=== PATIENT | female | born 1960 | race Caucasian/White ===

== ENCOUNTER → 2017-05-16 | Outpatient (CLI) | payer OTHER ==
--- NOTE | 2017-05-16 15:28 | DIAGNOSTIC IMAGING REPORT ---
MRCP HISTORY: K83.8 Common bile duct dilation R10.11 generalized Abdominal pain, [id number] TECHNIQUE: MRCP the abdomen was performed according to standard departmental protocol without the use of intravenous contrast. COMPARISON STUDY: Abdominal ultrasound 07/24/2007. FINDINGS: Small hiatus hernia. The lung bases are clear. The liver, spleen, adrenal glands, and kidneys are unremarkable. No retroperitoneal lymphadenopathy. A custom straightening of normal signal intensity. Gallbladder is decompressed but appears unremarkable. No intrahepatic bile duct dilatation. Mildly distended common bile duct and common hepatic duct measuring up to 7.6 mm. This is slightly increased in size compared to the 2006 abdominal ultrasound. No filling defects seen within the common bile duct or main pancreatic duct. The distal main pancreatic duct is also slightly prominent at the pancreatic head measuring up to 4 mm. There is a T2 hyperintense lesion within the junction of the body/tail of the pancreas best seen on axial image 12 of 27. This does not clearly connect to the main pancreatic duct. IMPRESSION: 1. Mildly dilated common bile duct and distal main pancreatic duct. However, no filling defects identified. The common bile duct dilatation is slightly progressed compared to the 2006 examination. ERCP can be used for further evaluation if clinically warranted. 2. Normal gallbladder. 3. An 8 mm cystic lesion within the distal body/tail the pancreas. This favors a cystic neoplasm such as a serous cystadenoma. One year follow-up is recommended to ensure stability. Electronically signed by: Alexander Barrett M.D. 05/16/2017 3:27 PM Dictated Date/Time: 05/16/2017 3:16 PM
== END | disposition home or self-care (01) ==
LOC: C.MRI 12:42
PROVIDERS: ATTEND Physician Assistant
DX: R10.11 Right upper quadrant pain (principal); K83.8 Other specified diseases of biliary tract; R93.2 Abnormal findings on diagnostic imaging of liver and biliary tract

== ENCOUNTER → 2018-01-02 | Day surgery (SDC) | payer OTHER ==
[2017-12-25 08:35] VITALS: BMI 35.0
[~2018-01-02] VITALS: Ht 154.9 cm; Wt 84.1 kg
[~2018-01-02] MED LIST: ASPCH81X PO; BUPR-79 PO; CHOL1000 PO; FERR1TAB13 PO; HYDR12.56 PO; INSDGI SC; LEVO125T5 PO; LIDOCAINE HCL 2% 2 ML VIAL (20MG/ML) ONE; LISI-461 PO; LORA-741 PO; METF500T5 PO; MIRT30TA2 PO; MULT-1092 PO; PANT1TAB3 PO; PROPOFOL IV EMULSION 10 MG/ML 20 ML VIAL IV ONE; SIMV40TA2 PO; SODIUM CHLORIDE 0.9% 500ML 500 ML IV ONE; TANZEUM SC; VNTHFA/IN INH; VORT1TAB PO
[2018-01-02 10:12] VITALS: Ht 154.9 cm; Wt 84.1 kg
--- NOTE | 2018-01-02 10:28 | Endo History and Physical ---
History & Physical Date of Service: Jan 02, 2018. Chief Complaint: Screening Referring Physician: Mari History of Present Illness 57 yo CF who presents for screening colonoscopy. Past Surgical History Hx Cardiac Surgery: No Hx Internal Defibrillator: No Hx Pacemaker: No Hx Abdominal Surgery: Yes (HYSTERECTOMY) Hx of Implantable Prosthesis: No Hx Post-Op Nausea and Vomiting: No Hx Cancer Surgery: No Hx Thoracic Surgery: No Hx Orthopedic: No Hx Urinary Tract Surgery: No Family History Esophogeal [place] Social History Smoking Status: Current Some Day Smoker Hx Substance Use: No Hx Alcohol Use: Yes (OCCASIONALLY) Allergies Coded Allergies: No Known Allergies (Verified , 12/25/17) Current Medications Reported Home Medications Medications Dose Route/Sig Max Daily Dose Days Date Category Ventolin Hfa (Albuterol) 200 Puffs/62727 Mcg Aers 2-4 Puffs INH Q6H PRN 12/25/17 Reported Glucophage Er (Metformin HCl) 500 Mg Tab 2 Tab PO BID 12/25/17 Reported Zocor (Simvastatin) 40 Mg Tab 40 Mg PO QAM 12/25/17 Reported Vitamin D3 (Cholecalciferol) 1,000 Unit Tab 1 Tab PO QAM 12/25/17 Reported Trintellix (Vortioxetine HBr) 5 Mg Tab 1 Tab PO QAM 12/25/17 Reported [Tanzeum] Unknown Dose SC WK ON SUN. 12/25/17 Reported Remeron Soltab (Mirtazapine) 30 Mg Soltab 30 Mg PO HS 12/25/17 Reported Protonix (Pantoprazole) 40 Mg Tab 40 Mg PO QAM 12/25/17 Reported Ativan (Lorazepam) 0.5 Mg Tab 0.5 Mg PO HS PRN 12/25/17 Reported Zestril (Lisinopril) 10 Mg Tab 10 Mg PO QAM 12/25/17 Reported Levothyroxine Sodium 125 Mcg Tab 1 Tab PO QAM 12/25/17 Reported Lantus (Insulin Glargine) 100 Unit/Ml Inj 25 Units SC HS 12/25/17 Reported Hctz (Hydrochlorothiazide) 12.5 Mg Cap 12.5 Mg PO QAM 12/25/17 Reported Kp Ferrous Sulfate (Ferrous Sulfate) 325 Mg Tab 1 Tab PO QAM 12/25/17 Reported Centrum Silver 50+Women (Multiple Vitamins W/ Minerals) 1 Tab Tab 1 Tab PO QAM 12/25/17 Reported Wellbutrin Sr (Bupropion HCl) 150 Mg Ertab 150 Mg PO QAM 12/25/17 Reported Aspirin Chewable (Aspirin) 81 Mg Chew 81 Mg PO QAM 12/25/17 Reported Vital Signs Weight (Kilograms): 84.09 Height (Feet): 5 Height (Inches): 1 Date Time Temp Pulse Resp B/P (MAP) Pulse Ox O2 Delivery O2 Flow Rate FiO2 01/02/18 10:10 36.7 84 18 157/91 (113) 97 Room Air Physical Exam General Appearance: WD/WN, no apparent distress Respiratory/Chest: Auscultation: breath sounds normal Cardiovascular: Heart Auscultation: RRR Abdomen: Bowel Sounds: normal Inspection & Palpation: soft, non-distended, no tenderness, guarding & rebound Assessment and Plan Assessment: 57 yo CF who presents for screening colonoscopy. Plan: Proceed with colonoscopy.
--- NOTE | 2018-01-02 10:48 | Discharge Instructions ---
Endoscopy Patient Instructions Date / Procedure(s) Performed Jan 02, 2018. Colonoscopy Allergy Information Coded Allergies: No Known Allergies (Verified , 12/25/17) Discharge Date / Findings Jan 02, 2018. Poor bowel prep Internal hemorrhoids Medication Instructions OK to resume all medications today as prescribed Reported Home Medications Medications Dose Route/Sig Max Daily Dose Days Date Category Ventolin Hfa (Albuterol) 200 Puffs/16009 Mcg Aers 2-4 Puffs INH Q6H PRN 12/25/17 Reported Glucophage Er (Metformin HCl) 500 Mg Tab 2 Tab PO BID 12/25/17 Reported Zocor (Simvastatin) 40 Mg Tab 40 Mg PO QAM 12/25/17 Reported Vitamin D3 (Cholecalciferol) 1,000 Unit Tab 1 Tab PO QAM 12/25/17 Reported Trintellix (Vortioxetine HBr) 5 Mg Tab 1 Tab PO QAM 12/25/17 Reported [Tanzeum] Unknown Dose SC WK ON SUN. 12/25/17 Reported Remeron Soltab (Mirtazapine) 30 Mg Soltab 30 Mg PO HS 12/25/17 Reported Protonix (Pantoprazole) 40 Mg Tab 40 Mg PO QAM 12/25/17 Reported Ativan (Lorazepam) 0.5 Mg Tab 0.5 Mg PO HS PRN 12/25/17 Reported Zestril (Lisinopril) 10 Mg Tab 10 Mg PO QAM 12/25/17 Reported Levothyroxine Sodium 125 Mcg Tab 1 Tab PO QAM 12/25/17 Reported Lantus (Insulin Glargine) 100 Unit/Ml Inj 25 Units SC HS 12/25/17 Reported Hctz (Hydrochlorothiazide) 12.5 Mg Cap 12.5 Mg PO QAM 12/25/17 Reported Kp Ferrous Sulfate (Ferrous Sulfate) 325 Mg Tab 1 Tab PO QAM 12/25/17 Reported Centrum Silver 50+Women (Multiple Vitamins W/ Minerals) 1 Tab Tab 1 Tab PO QAM 12/25/17 Reported Wellbutrin Sr (Bupropion HCl) 150 Mg Ertab 150 Mg PO QAM 12/25/17 Reported Aspirin Chewable (Aspirin) 81 Mg Chew 81 Mg PO QAM 12/25/17 Reported Provider Instructions Activity Restrictions - No exercising or heavy lifting for 24 hours. - Do not drink alcohol the day of the procedure. - Do not drive a car or operate machinery until the day after the procedure. - Do not make any important decisions or sign important papers in 24 hours after the procedure. Following Day: - Return to full activity which may include returning to work/school. Diet Start your diet with liquids and light foods (jello, soup, juice, toast). Then eat your usual diet if not nauseated. Treatment For Common After Affects For mild abdominal pain, bloating, or excessive gas: - Rest - Eat lightly - Lie on right side Repeat colonoscopy in 3 months Follow-Up Information Follow-up with DR JAMIE TUBBS as scheduled Anesthesia Information What You Should Know You have had a procedure that required some medicine to reduce anxiety and discomfort. This treatment is called moderate sedation. After receiving the treatment, you may be sleepy, but you will be able to breathe on your own. The effects of the treatment may last for several hours. Follow these instructions along with Activity/Diet recommendations noted above: * Do NOT do anything where dizziness or clumsiness would be dangerous. * Rest quietly at home today, then you can be up and about tomorrow. * Have a responsible person stay with you the rest of today. * You may have had an I.V. today. If so, you may take the dressing off later today. Recommendations Call your doctor if: * Trouble breathing * Continuous vomiting for more than 24 hours * Temperature above 101 degrees * Severe abdominal pain or bloating * Pain not relieved by pain medicine ordered * There is increased drainage or redness from any incision * A large amount of rectal bleeding greater than 2-3 tablespoons. (If you had a polyp/s removed or have hemorrhoids, a small amount of blood - from the rectum is to be expected.) * You have any unanswered questions or concerns. IN THE EVENT OF A SERIOUS EMERGENCY, GO TO THE NEAREST EMERGENCY ROOM Your discharge instructions were prepared by provider Carlos Forde. Patient Instructions Signature Page Rakel Huynh Patient (or Guardian) Signature/Date: I have read and understand the instructions given to me by my caregivers. Caregiver/RN/Doctor Signature/Date: The above-named patient and/or guardian has received patient instructions on this date. + Original Patient Signature Page (only) stays with chart. Please make copy for patient.
[2018-01-02 11:18] VITALS: BP 160/88; PULSE 85; O2SAT 95
--- NOTE | 2018-01-02 13:06 | Anesthesiology Progress Note ---
Anesthesia Post Op Note Date & Time Jan 02, 2018 at 13:06 Vital Signs Pain Intensity: 0 Vital Signs Past 12 Hours Date Time Temp Pulse Resp B/P (MAP) Pulse Ox O2 Delivery O2 Flow Rate FiO2 01/02/18 11:18 85 20 160/88 (112) 95 Room Air 01/02/18 11:08 84 18 159/87 (111) 97 Room Air 01/02/18 10:48 89 14 106/78 (87) 97 Room Air 01/02/18 10:10 36.7 84 18 157/91 (113) 97 Room Air Notes Mental Status: alert / awake / arousable, participated in evaluation Pt Amnestic to Procedure: Yes Nausea / Vomiting: adequately controlled Pain: adequately controlled Airway Patency, RR, SpO2: stable & adequate BP & HR: stable & adequate Hydration State: stable & adequate Anesthetic Complications: no major complications apparent
--- NOTE | 2018-01-03 11:34 | GI REPORT ---
Patient Name: Rakel Huynh Procedure Date: 01/02/2018 10:20 AM Date of : 1960 Admit Type: Outpatient Age: 57 Gender: Female Attending MD: Carlos Forde DO Procedure: Colonoscopy Providers: Carlos Forde DO Referring MD: Alexandrea Guerra Indications: Screening for colorectal malignant neoplasm Medicines: Monitored Anesthesia Care Complications: No immediate complications. Estimated Blood Loss: Estimated blood loss: none. Procedure: Pre-Anesthesia Assessment: - Prior to the procedure, a History and Physical was performed, and patient medications and allergies were reviewed. The patient's tolerance of previous anesthesia was also reviewed. The risks and benefits of the procedure and the sedation options and risks were discussed with the patient. All questions were answered, and informed consent was obtained. Prior Anticoagulants: The patient has taken aspirin, last dose was 1 day prior to procedure. ASA Grade Assessment: III - A patient with severe systemic disease. After reviewing the risks and benefits, the patient was deemed in satisfactory condition to undergo the procedure. After I obtained informed consent, the scope was passed under direct vision. Throughout the procedure, the patient's blood pressure, pulse, and oxygen saturations were monitored continuously. The scope was introduced through the anus with the intention of advancing to the ileum. The scope was advanced to the splenic flexure before the procedure was aborted. Medications were given. The colonoscopy was performed without difficulty. The patient tolerated the procedure well. The quality of the bowel preparation was poor. The rectum was photographed. Findings: The perianal and digital rectal examinations were normal. Extensive amounts of stool was found in the rectum, in the sigmoid colon, in the descending colon and at the splenic flexure, precluding visualization. Non-bleeding internal hemorrhoids were found during retroflexion. The hemorrhoids were small. Impression: - Preparation of the colon was poor. - Stool in the rectum, in the sigmoid colon, in the descending colon and at the splenic flexure. - Non-bleeding internal hemorrhoids. - No specimens collected. Recommendation: - Resume previous diet. - Continue present medications. - Repeat colonoscopy in 3 months because the bowel preparation was poor. - Return to primary care physician as previously scheduled. Carlos Forde DO 01/02/2018 4:42:36 PM This report has been signed electronically. Note Initiated On: 01/02/2018 10:20 AM Number of Addenda: 0 I attest to the content of the Intraoperative Record and orders documented therein, exceptions below {[id number]}
== END | disposition home or self-care (01) ==
LOC: C.GI 08:48
PROVIDERS: ATTEND Internal Medicine
DX: Z12.11 Encounter for screening for malignant neoplasm of colon (principal); Z80.0 Family history of malignant neoplasm of digestive organs; Z90.710 Acquired absence of both cervix and uterus; Z90.89 Acquired absence of other organs; F17.200 Nicotine dependence, unspecified, uncomplicated; Z79.899 Other long term (current) drug therapy; Z79.4 Long term (current) use of insulin; Z79.82 Long term (current) use of aspirin

== ENCOUNTER → 2018-04-10 | Day surgery (SDC) | payer OTHER ==
[2018-04-05 11:11] VITALS: Ht 154.9 cm; Wt 75.0 kg
[~2018-04-10] VITALS: Ht 154.9 cm; Wt 75.0 kg
[~2018-04-10] MED LIST changes: -HYDR12.56 PO; -PROPOFOL IV EMULSION 10 MG/ML 20 ML VIAL IV ONE; +PROPOFOL IV EMULSION 10 MG/ML 20 ML VIAL ONE
--- NOTE | 2018-04-10 08:28 | Endo History and Physical ---
History & Physical Date of Service: Apr 10, 2018. Chief Complaint: Screening Referring Physician: Alexandrea Guerra History of Present Illness 58 yo CF who presents for screening colonoscopy. Past Surgical History Hx Cardiac Surgery: No Hx Internal Defibrillator: No Hx Pacemaker: No Hx Abdominal Surgery: Yes (HYSTERECTOMY) Hx of Implantable Prosthesis: No Hx Post-Op Nausea and Vomiting: No Hx Cancer Surgery: No Hx Thoracic Surgery: No Hx Orthopedic: No Hx Urinary Tract Surgery: No Family History Esophogeal [place] Social History Smoking Status: Current Some Day Smoker Hx Substance Use: No Hx Alcohol Use: Yes (OCCASIONALLY) Allergies Coded Allergies: No Known Allergies (Verified , 04/05/18) Current Medications Reported Home Medications Medications Dose Route/Sig Max Daily Dose Days Date Category Ventolin Hfa (Albuterol) 200 Puffs/76842 Mcg Aers 2-4 Puffs INH Q6H PRN 12/25/17 Reported Glucophage Er (Metformin HCl) 500 Mg Tab 2 Tab PO BID 12/25/17 Reported Zocor (Simvastatin) 40 Mg Tab 40 Mg PO QAM 12/25/17 Reported Vitamin D3 (Cholecalciferol) 1,000 Unit Tab 1 Tab PO QAM 12/25/17 Reported Trintellix (Vortioxetine HBr) 5 Mg Tab 1 Tab PO QAM 12/25/17 Reported [Tanzeum] Unknown Dose SC WK ON SUN. 12/25/17 Reported Remeron Soltab (Mirtazapine) 30 Mg Soltab 30 Mg PO HS 12/25/17 Reported Protonix (Pantoprazole) 40 Mg Tab 40 Mg PO QAM 12/25/17 Reported Ativan (Lorazepam) 0.5 Mg Tab 0.5 Mg PO HS PRN 12/25/17 Reported Zestril (Lisinopril) 10 Mg Tab 10 Mg PO QAM 12/25/17 Reported Levothyroxine Sodium 125 Mcg Tab 1 Tab PO QAM 12/25/17 Reported Lantus (Insulin Glargine) 100 Unit/Ml Inj 25 Units SC HS 12/25/17 Reported Kp Ferrous Sulfate (Ferrous Sulfate) 325 Mg Tab 1 Tab PO QAM 12/25/17 Reported Centrum Silver 50+Women (Multiple Vitamins W/ Minerals) 1 Tab Tab 1 Tab PO QAM 12/25/17 Reported Wellbutrin Sr (Bupropion HCl) 150 Mg Ertab 150 Mg PO QAM 12/25/17 Reported Aspirin Chewable (Aspirin) 81 Mg Chew 81 Mg PO QAM 12/25/17 Reported Vital Signs Weight (Kilograms): 75 Height (Feet): 5 Height (Inches): 1 Date Time Temp Pulse Resp B/P (MAP) Pulse Ox O2 Delivery O2 Flow Rate FiO2 04/10/18 08:17 36.6 94 18 149/86 (107) 97 Room Air Physical Exam General Appearance: WD/WN, no apparent distress Respiratory/Chest: Auscultation: breath sounds normal Cardiovascular: Heart Auscultation: RRR Abdomen: Bowel Sounds: normal Inspection & Palpation: soft, non-distended, no tenderness, guarding & rebound Assessment and Plan Assessment: 58 yo CF who presents for screening colonoscopy. Plan: Proceed with colonoscopy.
--- NOTE | 2018-04-10 09:39 | Discharge Instructions ---
Endoscopy Patient Instructions Date / Procedure(s) Performed Apr 10, 2018. Colonoscopy Allergy Information Coded Allergies: No Known Allergies (Verified , 04/05/18) Discharge Date / Findings Apr 10, 2018. Internal hemorrhoids Medication Instructions Stopped Medication(s): Patient stated she "didn't take any of it". OK to resume all medications today as prescribed Reported Home Medications Medications Dose Route/Sig Max Daily Dose Days Date Category Ventolin Hfa (Albuterol) 200 Puffs/08011 Mcg Aers 2-4 Puffs INH Q6H PRN 12/25/17 Reported Glucophage Er (Metformin HCl) 500 Mg Tab 2 Tab PO BID 12/25/17 Reported Zocor (Simvastatin) 40 Mg Tab 40 Mg PO QAM 12/25/17 Reported Vitamin D3 (Cholecalciferol) 1,000 Unit Tab 1 Tab PO QAM 12/25/17 Reported Trintellix (Vortioxetine HBr) 5 Mg Tab 1 Tab PO QAM 12/25/17 Reported [Tanzeum] Unknown Dose SC WK ON SUN. 12/25/17 Reported Remeron Soltab (Mirtazapine) 30 Mg Soltab 30 Mg PO HS 12/25/17 Reported Protonix (Pantoprazole) 40 Mg Tab 40 Mg PO QAM 12/25/17 Reported Ativan (Lorazepam) 0.5 Mg Tab 0.5 Mg PO HS PRN 12/25/17 Reported Zestril (Lisinopril) 10 Mg Tab 10 Mg PO QAM 12/25/17 Reported Levothyroxine Sodium 125 Mcg Tab 1 Tab PO QAM 12/25/17 Reported Lantus (Insulin Glargine) 100 Unit/Ml Inj 25 Units SC HS 12/25/17 Reported Kp Ferrous Sulfate (Ferrous Sulfate) 325 Mg Tab 1 Tab PO QAM 12/25/17 Reported Centrum Silver 50+Women (Multiple Vitamins W/ Minerals) 1 Tab Tab 1 Tab PO QAM 12/25/17 Reported Wellbutrin Sr (Bupropion HCl) 150 Mg Ertab 150 Mg PO QAM 12/25/17 Reported Aspirin Chewable (Aspirin) 81 Mg Chew 81 Mg PO QAM 12/25/17 Reported Provider Instructions Activity Restrictions - No exercising or heavy lifting for 24 hours. - Do not drink alcohol the day of the procedure. - Do not drive a car or operate machinery until the day after the procedure. - Do not make any important decisions or sign important papers in 24 hours after the procedure. Following Day: - Return to full activity which may include returning to work/school. Diet Start your diet with liquids and light foods (jello, soup, juice, toast). Then eat your usual diet if not nauseated. Treatment For Common After Affects For mild abdominal pain, bloating, or excessive gas: - Rest - Eat lightly - Lie on right side Follow-Up Information Follow-up with Dr. Guerra as scheduled Anesthesia Information What You Should Know You have had a procedure that required some medicine to reduce anxiety and discomfort. This treatment is called moderate sedation. After receiving the treatment, you may be sleepy, but you will be able to breathe on your own. The effects of the treatment may last for several hours. Follow these instructions along with Activity/Diet recommendations noted above: * Do NOT do anything where dizziness or clumsiness would be dangerous. * Rest quietly at home today, then you can be up and about tomorrow. * Have a responsible person stay with you the rest of today. * You may have had an I.V. today. If so, you may take the dressing off later today. Recommendations Call your doctor if: * Trouble breathing * Continuous vomiting for more than 24 hours * Temperature above 101 degrees * Severe abdominal pain or bloating * Pain not relieved by pain medicine ordered * There is increased drainage or redness from any incision * A large amount of rectal bleeding greater than 2-3 tablespoons. (If you had a polyp/s removed or have hemorrhoids, a small amount of blood - from the rectum is to be expected.) * You have any unanswered questions or concerns. IN THE EVENT OF A SERIOUS EMERGENCY, GO TO THE NEAREST EMERGENCY ROOM Your discharge instructions were prepared by provider Carlos Forde. Patient Instructions Signature Page Rakel Huynh Patient (or Guardian) Signature/Date: I have read and understand the instructions given to me by my caregivers. Caregiver/RN/Doctor Signature/Date: The above-named patient and/or guardian has received patient instructions on this date. + Original Patient Signature Page (only) stays with chart. Please make copy for patient.
--- NOTE | 2018-04-10 09:45 | GI REPORT ---
Patient Name: Rakel Huynh Procedure Date: 04/10/2018 9:02 AM Date of : 1960 Admit Type: Outpatient Age: 58 Gender: Female Attending MD: Carlos Forde DO Procedure: Colonoscopy Providers: Carlos Forde DO Referring MD: Alexandrea Guerra Indications: Screening for colorectal malignant neoplasm Medicines: Monitored Anesthesia Care Complications: No immediate complications. Estimated Blood Loss: Estimated blood loss: none. Procedure: Pre-Anesthesia Assessment: - Prior to the procedure, a History and Physical was performed, and patient medications and allergies were reviewed. The patient's tolerance of previous anesthesia was also reviewed. The risks and benefits of the procedure and the sedation options and risks were discussed with the patient. All questions were answered, and informed consent was obtained. Prior Anticoagulants: The patient has taken aspirin, last dose was 1 day prior to procedure. ASA Grade Assessment: II - A patient with mild systemic disease. After reviewing the risks and benefits, the patient was deemed in satisfactory condition to undergo the procedure. After I obtained informed consent, the scope was passed under direct vision. Throughout the procedure, the patient's blood pressure, pulse, and oxygen saturations were monitored continuously. The scope was introduced through the anus and advanced to the terminal ileum. The colonoscopy was performed without difficulty. The patient tolerated the procedure well. The quality of the bowel preparation was fair. The colonoscopy was performed without difficulty. Findings: The perianal and digital rectal examinations were normal. Non-bleeding internal hemorrhoids were found during retroflexion. The hemorrhoids were small. Impression: - Preparation of the colon was fair. - Non-bleeding internal hemorrhoids. - No specimens collected. Recommendation: - Resume previous diet. - Continue present medications. - Repeat colonoscopy in 3 years for surveillance due to fair bowel prep. - Return to primary care physician as previously scheduled. Carlos Forde DO 04/10/2018 9:44:24 AM This report has been signed electronically. Note Initiated On: 04/10/2018 9:02 AM Number of Addenda: 0 I attest to the content of the Intraoperative Record and orders documented therein, exceptions below {[id number]}
[2018-04-10 09:59] VITALS: BP 147/85; PULSE 90; O2SAT 100
--- NOTE | 2018-04-10 10:01 | Anesthesiology Progress Note ---
Anesthesia Post Op Note Date & Time Apr 10, 2018 at 10:01 Vital Signs Pain Intensity: 0 Vital Signs Past 12 Hours Date Time Temp Pulse Resp B/P (MAP) Pulse Ox O2 Delivery O2 Flow Rate FiO2 04/10/18 09:44 94 18 129/89 (102) 93 Room Air 04/10/18 09:29 36.5 90 18 123/69 (87) 96 Room Air 04/10/18 08:17 36.6 94 18 149/86 (107) 97 Room Air Notes Mental Status: alert / awake / arousable, participated in evaluation Pt Amnestic to Procedure: Yes Nausea / Vomiting: adequately controlled Pain: adequately controlled Airway Patency, RR, SpO2: stable & adequate BP & HR: stable & adequate Hydration State: stable & adequate Anesthetic Complications: no major complications apparent
== END | disposition home or self-care (01) ==
LOC: C.GI 07:39
PROVIDERS: ATTEND Internal Medicine
DX: Z12.11 Encounter for screening for malignant neoplasm of colon (principal); K64.8 Other hemorrhoids; F17.200 Nicotine dependence, unspecified, uncomplicated; I10 Essential (primary) hypertension; E78.5 Hyperlipidemia, unspecified; K21.9 Gastro-esophageal reflux disease without esophagitis; M19.90 Unspecified osteoarthritis, unspecified site; E11.9 Type 2 diabetes mellitus without complications; F41.9 Anxiety disorder, unspecified; Z79.84 Long term (current) use of oral hypoglycemic drugs; Z79.82 Long term (current) use of aspirin